=== PATIENT | female | born 1965 | race Two or more races ===

== ENCOUNTER 2022-12-12 13:28 | Inpatient (IN) | payer MEDICARE ==
[~2022-12-12] VITALS: Ht 167.6 cm; Wt 55.8 kg
[2022-12-12] MEDS ORDERED: SODIUM CHLORIDE 0.9% 1000ML BAG (SEPSIS BOLUS) IV ONE (14:15)
[2022-12-12] MEDS ORDERED: ACETAMINOPHEN 650MG SUPP PR ONE (14:15)
[2022-12-12 14:49] LABS: BASOPHILS % 0.2 % (0.0-2.0); EOSINOPHILS % 0.1 % (0.0-5.0); HEMOGLOBIN. 14.2 g/dL (12.0-16.0); LYMPHOCYTES % 9.5 % (20.0-50.0); MEAN CORPUSCULAR HEMOGLOBIN 29.2 pg (28.0-32.0); MEAN CORPUSCULAR VOLUME 84.6 fL (81.0-99.0); MEAN PLATELET VOLUME 8.9 fl (7.4-10.4); MONOCYTES % 11.7 % (2.0-8.0); NEUTROPHILS % 78.5 % (40.0-76.0); PLATELET 247 x1000/uL (130-400); RED BLOOD CELL COUNT 4.85 mill/uL (4.2-5.4); RED CELL DISTRIBUTION WIDTH 14.3 % (11.6-14.6)
[2022-12-12 14:55] LABS: INR 1.1; PROTHROMBIN TIME 11.5 sec (9.6-11.0)
[2022-12-12 14:56] LABS: CHLORIDE 122 mEq/L (98-107)
[2022-12-12 15:15] LABS: CLARITY URINE TURBID (CLEAR); COLOR URINE ORANGE (YELLOW); KETONES URINE NEGATIVE (NEGATIVE); LEUKOCYTE ESTERASE URINE 1+ (NEGATIVE); NITRITE URINE NEGATIVE (NEGATIVE); OCCULT BLOOD URINE 3+ (NEGATIVE); PROTEIN URINE 2+ (NEGATIVE); UROBILINOGEN URINE 0.2 E.U./dL (0.2-1.0)
[2022-12-12] MEDS ORDERED: CEFTRIAXONE 1GM PREMIX 50 ML IV NR (16:15)
[2022-12-12 16:45] LABS: BG BASE EXCESS 1.9 mmol/L (-2.0-2.0); BG CARBOXYHEMOGLOBIN 0.8 % (0.5-1.5); BG DEOXYHEMOGLOBIN 0.7 % (0.0-5.0); BG FRACTION INSPIRED OXYGEN 100; BG HCO3 ACT 25.1 mmol/L (22.0-26.0); BG METHEMOGLOBIN 0.2 % (0.0-1.5); BG OXYGEN SATURATION 99.3 % (92.0-98.5); BG OXYHEMOGLOBIN 98.3 % (94.0-97.0); BG PH 7.473 (7.350-7.450); BG PO2 228.5 mmHg (75.0-100.0); BG SAMPLE SITE RIGHT BRACHIAL; BG TOTAL HEMOGLOBIN 15.1 g/dL (12.0-18.0); BG VENT MODE MASK - BIPAP
[2022-12-12] MEDS ORDERED: IPRATROPIUM/ALBUTEROL 0.5-3(2.5)MG/3ML NEB HHN PRN (17:45)
[2022-12-12] MEDS ORDERED: DIGOXIN 500MCG/2ML AMP IV NR (20:00)
[2022-12-12] MEDS ORDERED: CEFEPIME 2,000 MG in DEXT 5% WATER 100 ML IV SCH (21:00)
[2022-12-12] MEDS ORDERED: TRAZ-251 PO (23:56)
[2022-12-12] MEDS ORDERED: OLAN5TAB3 PO (23:56)
[2022-12-12] MEDS ORDERED: HALO5TAB MT (23:56)
[2022-12-12] MEDS ORDERED: TEMA7.5C PO (23:59)
[2022-12-12] MEDS ORDERED: TOPUD PO (23:59)
[2022-12-12] MEDS ORDERED: MOM PO (23:59)
[2022-12-12] MEDS ORDERED: DEPSPR PO (23:59)
[2022-12-12] MEDS ORDERED: CLON0.5T23 PO (23:59)
[2022-12-13] VITALS (12 sets, daily range): BP systolic 100–143; BP diastolic 48–93
[2022-12-13] MEDS ORDERED: LORAZEPAM 2MG/ML CPJ IV PRN (00:15)
[2022-12-13] MEDS ORDERED: SODIUM CHLORIDE 0.9% 1,000 ML IV SCH (00:15)
[2022-12-13] MEDS ORDERED: VANCOMYCIN 1G PREMIX 200 ML IV NR (01:00)
[2022-12-13] MEDS: IPRATROPIUM/ALBUTEROL 0.5-3(2.5)MG/3ML NEB HHN SCH ×4 (01:47→21:13)
[2022-12-13] MEDS ORDERED: AZITHROMYCIN 500MG/250ML 250 ML IV SCH (02:00)
[2022-12-13] MEDS ORDERED: ACETAMINOPHEN 650MG SUPP PR PRN (05:00)
[2022-12-13 06:27] LABS: BASOPHILS % 0.3 % (0.0-2.0); EOSINOPHILS % 1.4 % (0.0-5.0); HEMATOCRIT. 41.7 % (36.0-48.0); HEMOGLOBIN. 13.8 g/dL (12.0-16.0); LYMPHOCYTES % 16.5 % (20.0-50.0); MEAN CORPUSCULAR HEMOGLOBIN 28.6 pg (28.0-32.0); MEAN CORPUSCULAR VOLUME 86.4 fL (81.0-99.0); MEAN PLATELET VOLUME 8.7 fl (7.4-10.4); MONOCYTES % 9.9 % (2.0-8.0); NEUTROPHILS % 71.9 % (40.0-76.0); PLATELET 228 x1000/uL (130-400); RED BLOOD CELL COUNT 4.83 mill/uL (4.2-5.4)
[2022-12-13 06:51] LABS: CHLORIDE 121 mEq/L (98-107)
[2022-12-13] MEDS: SODIUM CHLORIDE 0.45% 1,000 ML IV SCH ×3 (07:17→23:00)
[2022-12-13] MEDS ORDERED: CEFEPIME 1,000 MG in DEXTROSE 5% WATER 50 ML IV SCH (09:00)
[2022-12-13 09:58] LABS: BG BASE EXCESS 2.2 mmol/L (-2.0-2.0); BG CARBOXYHEMOGLOBIN 0.3 % (0.5-1.5); BG DEOXYHEMOGLOBIN 1.4 % (0.0-5.0); BG FRACTION INSPIRED OXYGEN 44; BG HCO3 ACT 25.2 mmol/L (22.0-26.0); BG METHEMOGLOBIN 0.7 % (0.0-1.5); BG OXYGEN SATURATION 98.6 % (92.0-98.5); BG OXYHEMOGLOBIN 97.6 % (94.0-97.0); BG PCO2 34.4 mmHg (35.0-45.0); BG PH 7.483 (7.350-7.450); BG PO2 143.4 mmHg (75.0-100.0); BG SAMPLE SITE RIGHT BRACHIAL; BG TOTAL HEMOGLOBIN 13.5 g/dL (12.0-18.0); BG VENT MODE MASK - SIMPLE
[2022-12-13] MEDS: CEFEPIME 2,000 MG in DEXT 5% WATER 100 ML IV SCH ×2 (10:28→20:58)
[2022-12-13] MEDS: ENOXAPARIN 40MG/0.4ML SYR SUBCUT SCH (10:29)
[2022-12-13] MEDS: VANCOMYCIN 750MG PREMIX 150 ML IV SCH (13:12)
[2022-12-13] MEDS ORDERED: VANCOMYCIN 750MG PREMIX 150 ML IV SCH (15:00)
[2022-12-13] MEDS: HALOPERIDOL 5MG TABLET PO SCH (17:00)
[2022-12-13] MEDS: DIVALPROEX SODIUM 125MG SPRINKLE CAPSULE PO SCH (17:00)
[2022-12-13] MEDS: OLANZAPINE 5MG TABLET PO SCH (17:00)
[2022-12-13] MEDS: TRAZODONE HCL 50MG TABLET PO SCH (21:00)
[2022-12-14] VITALS (12 sets, daily range): BP systolic 97–152; BP diastolic 47–100
[2022-12-14] MEDS: VANCOMYCIN 750MG PREMIX 150 ML IV SCH (00:57)
[2022-12-14] MEDS: AZITHROMYCIN 500MG in DEXTROSE 5% WATER 250ML IV SCH (00:57)
[2022-12-14] MEDS: IPRATROPIUM/ALBUTEROL 0.5-3(2.5)MG/3ML NEB HHN SCH ×4 (01:31→20:59)
[2022-12-14 06:57] LABS: CHLORIDE 117 mEq/L (98-107)
[2022-12-14] MEDS: CEFEPIME 2,000 MG in DEXT 5% WATER 100 ML IV SCH ×2 (08:00→22:02)
[2022-12-14] MEDS: OLANZAPINE 5MG TABLET PO SCH ×2 (08:01→17:40)
[2022-12-14] MEDS: HALOPERIDOL 5MG TABLET PO SCH ×2 (08:01→17:40)
[2022-12-14] MEDS: ENOXAPARIN 40MG/0.4ML SYR SUBCUT SCH (08:01)
[2022-12-14] MEDS: DIVALPROEX SODIUM 125MG SPRINKLE CAPSULE PO SCH ×2 (08:01→17:41)
[2022-12-14] MEDS: SODIUM CHLORIDE 0.45% 1,000 ML IV SCH ×3 (08:02→22:03)
[2022-12-14 09:56] LABS: BG BASE EXCESS 0.3 mmol/L (-2.0-2.0); BG CARBOXYHEMOGLOBIN 0.3 % (0.5-1.5); BG DEOXYHEMOGLOBIN 1.6 % (0.0-5.0); BG FRACTION INSPIRED OXYGEN 28; BG HCO3 ACT 22.9 mmol/L (22.0-26.0); BG METHEMOGLOBIN 0.1 % (0.0-1.5); BG OXYGEN SATURATION 98.4 % (92.0-98.5); BG PCO2 30.6 mmHg (35.0-45.0); BG PH 7.492 (7.350-7.450); BG PO2 129.2 mmHg (75.0-100.0); BG SAMPLE SITE RIGHT RADIAL; BG TOTAL HEMOGLOBIN 11.9 g/dL (12.0-18.0); BG VENT MODE NASAL CANNULA
[2022-12-14] MEDS: VANCOMYCIN 1G PREMIX 200 ML IV SCH ×2 (11:39→17:41)
[2022-12-14] MEDS: TRAZODONE HCL 50MG TABLET PO SCH (22:02)
[2022-12-15] VITALS (12 sets, daily range): BP systolic 92–127; BP diastolic 52–92
[2022-12-15] MEDS: IPRATROPIUM/ALBUTEROL 0.5-3(2.5)MG/3ML NEB HHN SCH ×4 (02:06→20:46)
[2022-12-15] MEDS: VANCOMYCIN 1G PREMIX 200 ML IV SCH (02:11)
[2022-12-15] MEDS: AZITHROMYCIN 500MG in DEXTROSE 5% WATER 250ML IV SCH (02:11)
[2022-12-15] MEDS: SODIUM CHLORIDE 0.45% 1,000 ML IV SCH ×3 (05:27→22:22)
[2022-12-15 07:05] LABS: BASOPHILS % 0.3 % (0.0-2.0); EOSINOPHILS % 2.6 % (0.0-5.0); HEMATOCRIT. 34.5 % (36.0-48.0); HEMOGLOBIN. 11.6 g/dL (12.0-16.0); LYMPHOCYTES % 15.6 % (20.0-50.0); MEAN PLATELET VOLUME 8.5 fl (7.4-10.4); MONOCYTES % 8.1 % (2.0-8.0); NEUTROPHILS % 73.4 % (40.0-76.0); PLATELET 196 x1000/uL (130-400); RED BLOOD CELL COUNT 4.16 mill/uL (4.2-5.4); RED CELL DISTRIBUTION WIDTH 13.3 % (11.6-14.6)
[2022-12-15 07:06] LABS: CHLORIDE 113 mEq/L (98-107)
[2022-12-15] MEDS ORDERED: POTASSIUM CHLORIDE INJ 40 MEQ in DEXT 5% WATER 250 ML IV ONE (08:30)
[2022-12-15] MEDS: CEFEPIME 2,000 MG in DEXT 5% WATER 100 ML IV SCH ×2 (08:50→19:55)
[2022-12-15] MEDS: OLANZAPINE 5MG TABLET PO SCH ×2 (09:00→16:22)
[2022-12-15] MEDS: HALOPERIDOL 5MG TABLET PO SCH ×2 (09:00→16:22)
[2022-12-15] MEDS: DIVALPROEX SODIUM 125MG SPRINKLE CAPSULE PO SCH ×2 (09:00→16:22)
[2022-12-15] MEDS ORDERED: LIDOCAINE 2% 6ML GLYDO MM NR (10:00)
[2022-12-15] MEDS ORDERED: VISCOUS LIDOCAINE 2% 15 ML UDC MM SCH (10:00)
[2022-12-15] MEDS ORDERED: FENTANYL CITRATE/PF 50MCG/ML 2ML VIAL IV NR (10:30)
[2022-12-15] MEDS ORDERED: MIDAZOLAM HCL 2 MG/2 ML VIAL IV NR (10:30)
[2022-12-15] MEDS ORDERED: MIDAZOLAM HCL 2 MG/2 ML VIAL IV SCH (11:00)
[2022-12-15] MEDS: KCL 20MEQ/100ML X 2 FOR TOTAL KCL 40MEQ/200ML IV SCH ×2 (13:05→15:13)
[2022-12-15] MEDS: VANCOMYCIN 750MG PREMIX 150 ML IV SCH ×2 (13:48→20:02)
[2022-12-15 19:41] LABS: CREATINE KINASE MB FRACTION 9.7 ng/mL (0.5-3.6)
[2022-12-15] MEDS: TRAZODONE HCL 50MG TABLET PO SCH (20:02)
[2022-12-16] VITALS (12 sets, daily range): BP systolic 90–140; BP diastolic 45–95
[2022-12-16] MEDS: IPRATROPIUM/ALBUTEROL 0.5-3(2.5)MG/3ML NEB HHN SCH ×3 (01:40→20:47)
[2022-12-16] MEDS: AZITHROMYCIN 500MG in DEXTROSE 5% WATER 250ML IV SCH (01:49)
[2022-12-16] MEDS: VANCOMYCIN 750MG PREMIX 150 ML IV SCH ×3 (03:12→20:28)
[2022-12-16] MEDS: SODIUM CHLORIDE 0.45% 1,000 ML IV SCH ×2 (06:01→15:00)
[2022-12-16 06:21] LABS: BASOPHILS % 0.2 % (0.0-2.0); EOSINOPHILS % 4.2 % (0.0-5.0); HEMATOCRIT. 37.1 % (36.0-48.0); HEMOGLOBIN. 12.6 g/dL (12.0-16.0); LYMPHOCYTES % 14.5 % (20.0-50.0); MEAN CORPUSCULAR HEMOGLOBIN 28.3 pg (28.0-32.0); MEAN CORPUSCULAR VOLUME 83.5 fL (81.0-99.0); MEAN PLATELET VOLUME 8.5 fl (7.4-10.4); MONOCYTES % 9.5 % (2.0-8.0); NEUTROPHILS % 71.6 % (40.0-76.0); PLATELET 198 x1000/uL (130-400); RED BLOOD CELL COUNT 4.44 mill/uL (4.2-5.4); RED CELL DISTRIBUTION WIDTH 13.3 % (11.6-14.6)
[2022-12-16 06:26] LABS: CHLORIDE 112 mEq/L (98-107)
[2022-12-16] MEDS: OLANZAPINE 5MG TABLET PO SCH ×2 (08:04→16:27)
[2022-12-16] MEDS: CEFEPIME 2,000 MG in DEXT 5% WATER 100 ML IV SCH ×2 (08:04→22:00)
[2022-12-16] MEDS: DIVALPROEX SODIUM 125MG SPRINKLE CAPSULE PO SCH ×2 (08:04→16:27)
[2022-12-16] MEDS: HALOPERIDOL 5MG TABLET PO SCH ×2 (08:04→16:27)
[2022-12-16] MEDS: LACTULOSE 20G/30ML UDC PO SCH ×2 (13:43→20:28)
[2022-12-16] MEDS: KCL 10MEQ/50ML PREMIX 50 ML IV SCH ×3 (14:36→16:28)
[2022-12-16 16:50] LABS: HEPATITIS B SURFACE ANTIGEN NEGATIVE
[2022-12-16] MEDS: TRAZODONE HCL 50MG TABLET PO SCH (20:28)
[2022-12-17] VITALS (12 sets, daily range): BP systolic 90–119; BP diastolic 53–77
[2022-12-17] MEDS: IPRATROPIUM/ALBUTEROL 0.5-3(2.5)MG/3ML NEB HHN SCH ×4 (01:45→20:30)
[2022-12-17] MEDS: AZITHROMYCIN 500MG in DEXTROSE 5% WATER 250ML IV SCH (01:50)
[2022-12-17] MEDS: SODIUM CHLORIDE 0.45% 1,000 ML IV SCH (04:14)
[2022-12-17] MEDS: VANCOMYCIN 750MG PREMIX 150 ML IV SCH ×2 (04:15→14:21)
[2022-12-17] MEDS: LACTULOSE 20G/30ML UDC PO SCH ×3 (06:02→21:46)
[2022-12-17 07:01] LABS: BASOPHILS % 0.3 % (0.0-2.0); EOSINOPHILS % 2.8 % (0.0-5.0); HEMATOCRIT. 36.8 % (36.0-48.0); HEMOGLOBIN. 12.6 g/dL (12.0-16.0); LYMPHOCYTES % 19.4 % (20.0-50.0); MEAN CORPUSCULAR HEMOGLOBIN 28.3 pg (28.0-32.0); MEAN CORPUSCULAR VOLUME 82.6 fL (81.0-99.0); MEAN PLATELET VOLUME 8.8 fl (7.4-10.4); MONOCYTES % 8.5 % (2.0-8.0); PLATELET 223 x1000/uL (130-400); RED BLOOD CELL COUNT 4.45 mill/uL (4.2-5.4); RED CELL DISTRIBUTION WIDTH 13.2 % (11.6-14.6)
[2022-12-17 07:23] LABS: CHLORIDE 107 mEq/L (98-107)
[2022-12-17] MEDS: HALOPERIDOL 5MG TABLET PO SCH ×3 (08:07→16:21)
[2022-12-17] MEDS: OLANZAPINE 5MG TABLET PO SCH ×2 (08:07→16:21)
[2022-12-17] MEDS: DIVALPROEX SODIUM 125MG SPRINKLE CAPSULE PO SCH ×2 (08:07→16:21)
[2022-12-17] MEDS: CEFEPIME 2,000 MG in DEXT 5% WATER 100 ML IV SCH (08:08)
[2022-12-17] MEDS: TRAZODONE HCL 50MG TABLET PO SCH (21:46)
[2022-12-18] VITALS (17 sets, daily range): BP systolic 86–152; BP diastolic 55–79
[2022-12-18] MEDS: IPRATROPIUM/ALBUTEROL 0.5-3(2.5)MG/3ML NEB HHN SCH ×4 (02:04→20:56)
[2022-12-18 05:17] LABS: BASOPHILS % 0.4 % (0.0-2.0); EOSINOPHILS % 3.3 % (0.0-5.0); HEMOGLOBIN. 12.6 g/dL (12.0-16.0); LYMPHOCYTES % 20.5 % (20.0-50.0); MEAN CORPUSCULAR VOLUME 84.3 fL (81.0-99.0); MEAN PLATELET VOLUME 9.4 fl (7.4-10.4); MONOCYTES % 9.3 % (2.0-8.0); NEUTROPHILS % 66.5 % (40.0-76.0); PLATELET 222 x1000/uL (130-400); RED CELL DISTRIBUTION WIDTH 13.5 % (11.6-14.6)
[2022-12-18 05:34] LABS: CHLORIDE 109 mEq/L (98-107)
[2022-12-18] MEDS: LACTULOSE 20G/30ML UDC PO SCH ×2 (06:00→14:26)
[2022-12-18] MEDS: HALOPERIDOL 5MG TABLET PO SCH ×2 (09:23→17:58)
[2022-12-18] MEDS: DIVALPROEX SODIUM 125MG SPRINKLE CAPSULE PO SCH ×2 (09:23→17:58)
[2022-12-18] MEDS: OLANZAPINE 5MG TABLET PO SCH ×2 (09:23→17:58)
[2022-12-18] MEDS: TRAZODONE HCL 50MG TABLET PO SCH (21:19)
[2022-12-19] VITALS (8 sets, daily range): BP systolic 92–131; BP diastolic 48–94
[2022-12-19] MEDS: IPRATROPIUM/ALBUTEROL 0.5-3(2.5)MG/3ML NEB HHN SCH ×2 (03:02→07:56)
[2022-12-19 07:08] LABS: BASOPHILS % 0.2 % (0.0-2.0); HEMATOCRIT. 37.7 % (36.0-48.0); HEMOGLOBIN. 12.8 g/dL (12.0-16.0); LYMPHOCYTES % 11.3 % (20.0-50.0); MEAN CORPUSCULAR HEMOGLOBIN 28.3 pg (28.0-32.0); MEAN CORPUSCULAR VOLUME 83.6 fL (81.0-99.0); MONOCYTES % 9.5 % (2.0-8.0); RED BLOOD CELL COUNT 4.52 mill/uL (4.2-5.4); RED CELL DISTRIBUTION WIDTH 13.3 % (11.6-14.6)
[2022-12-19 07:23] LABS: CHLORIDE 107 mEq/L (98-107)
[2022-12-19 08:05] LABS: PLATELET 267 x1000/uL (130-400)
[2022-12-19] MEDS ORDERED: LACTULOSE 20G/30ML UDC PO SCH (09:00)
[2022-12-19] MEDS: HALOPERIDOL 5MG TABLET PO SCH (09:14)
[2022-12-19] MEDS: OLANZAPINE 5MG TABLET PO SCH (09:14)
[2022-12-19] MEDS: DIVALPROEX SODIUM 125MG SPRINKLE CAPSULE PO SCH (09:15)
== END 2022-12-19 15:19 | DRG 871 ==
LOC: ER 13:28 → 5EST 17:10 → EDBEDREQTM 17:15 → EDBEDREQ 17:15 → ENRESERV 22:51
PROVIDERS: ADMIT Internal Medicine; ATTEND Internal Medicine
PROC: 5A09357 Assistance with Respiratory Ventilation, Less than 24 Consecutive Hours, Continuous Positive Airway Pressure (ICD-10-PCS; principal; 2022-12-12)
DX: A41.9 Sepsis, unspecified organism (principal); J18.9 Pneumonia, unspecified organism; J96.01 Acute respiratory failure with hypoxia; N39.0 Urinary tract infection, site not specified; E72.20 Disorder of urea cycle metabolism, unspecified; E87.0 Hyperosmolality and hypernatremia; M62.82 Rhabdomyolysis; G93.40 Encephalopathy, unspecified; E87.3 Alkalosis; E44.0 Moderate protein-calorie malnutrition; Z68.1 Body mass index [BMI] 19.9 or less, adult; L89.156 Pressure-induced deep tissue damage of sacral region; Z20.822 Contact with and (suspected) exposure to COVID-19; E87.6 Hypokalemia; F20.9 Schizophrenia, unspecified; F31.9 Bipolar disorder, unspecified; E86.1 Hypovolemia; R62.7 Adult failure to thrive; F03.90 Unspecified dementia, unspecified severity, without behavioral disturbance, psychotic disturbance, mood disturbance, and anxiety; R13.10 Dysphagia, unspecified; G47.00 Insomnia, unspecified; J98.09 Other diseases of bronchus, not elsewhere classified; Z98.82 Breast implant status
CPT/HCPCS: 36415; 36600; 71045; 71275; 76700; 80048; 80053; 80076; 80165; 80202; 81003; 82040; 82140; 82375; 82550; 82553; 82805; 82962; 83605; 84134; 84145; 84484; 85025; 86705; 86709; 86803; 87070; 87340; 87420; 87426; 92610; 93005; 94640; 94660; 99285; A6261; C9803; J0456; J0692; J0696; J1160; J1630; J1650; J2250; J3010; J3370; J3480; J7030; J7060; A4315